=== PATIENT | female | born 1945 | race Caucasian/White ===

== ENCOUNTER → 2021-01-07 08:13 | Outpatient (CLI) | payer MEDICARE, SELFPAY ==
--- NOTE | 2021-01-07 08:18 | DI.MRI.S_ITS ---
PROCEDURE: MR KNEE LT WO CON INDICATIONS: Crushing injury of left knee, subsequent encounter TECHNIQUE: Noncontrast sagittal PD fast spin echo and T2 fast spin echo with fat saturation, sagittal 3-D FLASH with fat saturation; coronal T1 spin echo and PD fast spin echo with fat saturation, and axial PD fast spin echo with fat saturation through the knee. COMPARISON: None. FINDINGS: Image quality: Excellent. Menisci: Linear signal in the lateral meniscus, concerning for horizontal tear. Blunting of the medial meniscus with minimal extrusion, concerning for radial tear. Cruciate ligaments: The anterior and posterior cruciate ligaments appear intact. Medial structures: Edema about the medial collateral ligament, compatible with at least grade 2 injury. Lateral structures: The lateral collateral ligament complex is intact intact. The popliteus tendon appears normal. Iliotibial band appears normal. Anterior structures: The quadriceps and patellar tendons appear intact. Patellar alignment is normal. No edema in the infrapatellar fat pad. Bones and cartilage: T2 hyperintense signal within the posterior aspect of the tibia, compatible with contusion.. If fissure seen in the lateral patellar facet hyaline cartilage. Thinning of the medial hilum patellar facet. Signal heterogeneity of the medial and lateral compartment hyaline cartilage. Joint space: Small to moderate knee joint fluid. A T2 hyperintense lesion is seen within the popliteal fossa, measuring 2.2 x 1.2 x 3.7 cm, which may reflect a Fuller cyst. A complex lesion is seen posterior to the gastrocnemius muscles, measuring 9.4 x 1.5 x 4.6 cm, which may reflect an intramuscular hematoma. IMPRESSION: 1. No evidence of internal derangement. 2. Linear signal in the lateral meniscus, concerning for horizontal tear. 3. Blunting of the medial meniscus with minimal extrusion, concerning for radial tear. 4. Small to moderate joint effusion. 5. Complex lesion along the posterior aspect of the gastroc muscles, which may reflect intramuscular hematoma in the setting of traumatic injury. 6. At least grade 2 injury of the MCL. 7. Contusion in the posterior aspect of the tibial plateau. Dictated by: Quincy Paulson M.D. on 01/07/2021 at 9:27 Approved by: uQincy Paulson M.D. on 01/07/2021 at 9:39
== END ==
PROVIDERS: Referring Provider Physician Assistant Surgical; Visit Provider Physician Assistant Surgical
DX: S87.02XD Crushing injury of left knee, subsequent encounter (principal); M25.462 Effusion, left knee; S86.892A Other injury of other muscle(s) and tendon(s) at lower leg level, left leg, initial encounter
CPT/HCPCS: 73721

== ENCOUNTER → 2021-02-12 10:56 | Outpatient (CLI) | payer MEDICARE, SELFPAY ==
[2021-02-12] MEDS: COVID-19 VACC #3, MRNA(MOD) 50 MCG/0.25 ML VIAL IM (11:07)
== END ==
PROVIDERS: Visit Provider Internal Medicine
DX: Z23 Encounter for immunization (principal)
CPT/HCPCS: 0013A; 91301